=== PATIENT | female | born 1955 | race Caucasian/White ===

== ENCOUNTER 2017-10-26 06:40 | Day surgery (SDC) | payer OTHER ==
[~2017-10-26] VITALS: Ht 165.1 cm; Wt 77.3 kg
[~2017-10-26 06:40] MED LIST: ALBU8HFA IH; MOME13HF IH; MONT10TA21 PO; SODIUM CHLORIDE 0.9% 1,000 ML IV ONE
[2017-10-26] MEDS ORDERED: LIDOCAINE HCL 2% 30 ML JELLY TP ONE (06:41)
[2017-10-26] MEDS ORDERED: LIDOCAINE HCL 4% 50 ML SOLUTION TP ONE (06:41)
[2017-10-26] MEDS ORDERED: BENZOCAINE 20% 50 MCG/SPRAY 57 GM TP ONE (06:41)
[2017-10-26] MEDS ORDERED: ALBUTEROL SULFATE 2.5 MG/0.5 ML NEB SOLUTION NEB ONE (06:41)
[2017-10-26] MEDS ORDERED: SODIUM CHLORIDE 0.9% 1,000 ML IV ONE (07:01)
[2017-10-26] MEDS ORDERED: MethylPREDNISolone SOD SUCC 125 MG/2 ML VIAL IVP ONE (08:15)
[2017-10-26] MEDS ORDERED: MethylPREDNISolone SOD SUCC 125 MG/2 ML VIAL ONE (08:41)
[2017-10-26] MEDS ORDERED: MIDAZOLAM HCL 2 MG/2 ML VIAL ONE (15:53)
[2017-10-26] MEDS ORDERED: FentaNYL CITRATE-PF 100 MCG/2 ML VIAL ONE (15:54)
[2017-10-26] MEDS ORDERED: OXYGEN THERAPY IH SCH (20:00)
== END 2017-10-26 09:55 | disposition home or self-care (01) ==
LOC: SURGERY 06:40
PROVIDERS: ATTEND Internal Medicine Critical Care Medicine
DX: J38.4 Edema of larynx (principal); B37.0 Candidal stomatitis; J84.111 Idiopathic interstitial pneumonia, not otherwise specified; J45.909 Unspecified asthma, uncomplicated; Z79.899 Other long term (current) drug therapy; Z72.89 Other problems related to lifestyle; Z90.49 Acquired absence of other specified parts of digestive tract; Z98.51 Tubal ligation status
CPT/HCPCS: 31623; 31624; 71045; 87015; 87070; 87205; 87220; 88108; 88312; J2250; J2930; J3010; J7030

== ENCOUNTER 2022-04-28 05:54 | Day surgery (SDC) | payer MEDICARE, OTHER ==
[2022-04-26 14:04] LABS: COVID AG,FIA SOURCE NASOPHARYNGEAL
[~2022-04-28] VITALS: Ht 165.1 cm; Wt 76.4 kg
[~2022-04-28 05:54] MED LIST changes: +LOSA1TAB37 PO; +MONT-35 PO; -MONT10TA21 PO; -SODIUM CHLORIDE 0.9% 1,000 ML IV ONE
[2022-04-28] MEDS ORDERED: LIDOCAINE 2% 11 ML JELLY TP ONE (05:55)
[2022-04-28] MEDS ORDERED: LIDOCAINE 4% 50 ML SOLUTION TP ONE (05:55)
[2022-04-28] MEDS ORDERED: BENZOCAINE 20% 50 MCG/SPRAY 57 GM TP ONE (05:55)
[2022-04-28] MEDS ORDERED: SODIUM CHLORIDE 0.9% 1,000 ML ONE (06:59)
[2022-04-28] MEDS ORDERED: SODIUM CHLORIDE 0.9% 1,000 ML IV ONE (07:00)
[2022-04-28] MEDS ORDERED: MethylPREDNISolone SOD SUCC 125 MG/2 ML VIAL IVP ONE (08:00)
[2022-04-28] MEDS ORDERED: OXYGEN THERAPY IH SCH (08:00)
[2022-04-28] MEDS ORDERED: MethylPREDNISolone SOD SUCC 125 MG/2 ML VIAL ONE (08:05)
[2022-04-28] MEDS ORDERED: FentaNYL CITRATE PF 100 MCG/2 ML VIAL ONE (09:35)
[2022-04-28] MEDS ORDERED: MIDAZOLAM HCL 2 MG/2 ML VIAL ONE (09:35)
== END 2022-04-28 09:10 | disposition home or self-care (01) ==
LOC: SURGERY 05:54
PROVIDERS: ATTEND Internal Medicine Critical Care Medicine
DX: J38.4 Edema of larynx (principal); B37.0 Candidal stomatitis; Z79.899 Other long term (current) drug therapy
CPT/HCPCS: 87426; 31623; 88112; 87206; 87101; 87220; 87070; 87015; 88305; 88312; 31624; 71045; C9803; J3010; J2250; J2930; Q9967; J7030; Z7610

== ENCOUNTER 2023-11-30 05:55 | Day surgery (SDC) | payer MEDICARE, OTHER ==
[~2023-11-30 05:55] MED LIST changes: +ALBU18HF12 IH; -ALBU8HFA IH; -MOME13HF IH; +MOME13HF11 IH
[2023-11-30] MEDS ORDERED: LIDOCAINE 4% 50 ML SOLUTION TP ONE (05:56)
[2023-11-30] MEDS ORDERED: LIDOCAINE 2% 11 ML JELLY TP ONE (05:56)
[2023-11-30] MEDS ORDERED: BENZOCAINE 20% 50 MCG/SPRAY 57 GM TP ONE (05:56)
[2023-11-30] MEDS ORDERED: FentaNYL CITRATE PF 100 MCG/2 ML VIAL ONE (07:38)
[2023-11-30] MEDS ORDERED: MIDAZOLAM HCL 2 MG/2 ML VIAL ONE (07:38)
[2023-11-30] MEDS ORDERED: SODIUM CHLORIDE 0.9% 1,000 ML ONE (07:41)
[2023-11-30] MEDS: SODIUM CHLORIDE 0.9% 1,000 ML IV ONE (08:18)
[2023-11-30] MEDS ORDERED: MethylPREDNISolone SOD SUCC 125 MG/2 ML VIAL ONE (09:15)
[2023-11-30] MEDS: MethylPREDNISolone SOD SUCC 125 MG/2 ML VIAL IVP ONE (09:45)
[2023-11-30 12:58] VITALS: PULSE 83; RESP 17; O2SAT 100
== END 2023-11-30 12:55 | disposition home or self-care (01) ==
LOC: SURGERY 05:55
PROVIDERS: ATTEND Internal Medicine Critical Care Medicine
DX: R05.3 Chronic cough (principal); R06.2 Wheezing; R04.2 Hemoptysis
CPT/HCPCS: 31623; 87206; 87101; 87220; 87070; 88108; 88305; 31624; 94640; 71045; 87015; J3010; J2250; J2930; Q9967; J7030; 87186; Z7610

== ENCOUNTER 2025-09-11 06:34 | Day surgery (SDC) | payer MEDICARE, OTHER ==
[~2025-09-11] VITALS: Ht 152.4 cm; Wt 77.2 kg
[~2025-09-11 06:34] MED LIST changes: +SODIUM CHLORIDE 0.9% 1,000 ML ONE
[2025-09-11] MEDS: SODIUM CHLORIDE 0.9% 1,000 ML IV ONE (07:55)
[2025-09-11] MEDS ORDERED: FentaNYL CITRATE PF 100 MCG/2 ML VIAL ONE (08:14)
[2025-09-11] MEDS ORDERED: MIDAZOLAM HCL 2 MG/2 ML VIAL ONE (08:14)
[2025-09-11 09:28] VITALS: PULSE 89; RESP 20; O2SAT 98
[2025-09-11] MEDS ORDERED: BENZOCAINE 20% 50 MCG/SPRAY 57 GM ONE (12:00)
[2025-09-11] MEDS ORDERED: LIDOCAINE 4% 50 ML SOLUTION ONE (12:00)
[2025-09-11] MEDS ORDERED: LIDOCAINE 2% 11 ML JELLY ONE (12:00)
[2025-09-11] MEDS ORDERED: ALBUTEROL SULFATE 2.5 MG/0.5 ML NEB SOLUTION NEB ONE (12:00)
== END 2025-09-11 13:10 | disposition home or self-care (01) ==
LOC: SURGERY 06:34
PROVIDERS: ATTEND Internal Medicine Critical Care Medicine
DX: J38.4 Edema of larynx (principal); B37.0 Candidal stomatitis; R05.3 Chronic cough; R06.2 Wheezing; R04.2 Hemoptysis
CPT/HCPCS: 31623; 87206; 87101; 87220; 87070; 88108; 31624; 71045; 87015; J3010; J2250; J2919; J7030; J7613; Z7610